=== PATIENT | male | born 1945 | race Caucasian/White ===

== ENCOUNTER → 2016-07-16 | Outpatient (CLI) | payer BC | END | disposition home or self-care (01) | LOC: XYW 07:34 | PROVIDERS: ATTEND Internal Medicine | DX: I51.7 Cardiomegaly (principal); I35.0 Nonrheumatic aortic (valve) stenosis; I35.1 Nonrheumatic aortic (valve) insufficiency; I37.1 Nonrheumatic pulmonary valve insufficiency | CPT/HCPCS: 93306 ==

== ENCOUNTER → 2016-08-14 10:55 | Emergency (ER) | payer BC, MEDICARE ==
[~2016-08-14] VITALS: Ht 165.1 cm; Wt 90.7 kg
[~2016-08-14 10:55] MED LIST: SODIUM BICARBONATE 8.4% INJ 50ML SYRINGE ONE
[2016-08-14 11:03] VITALS: BP 70/29
== END | disposition expired ==
LOC: EDUNIT# 10:48 → EDBD 10:55 → ER 10:55
DX: I46.9 Cardiac arrest, cause unspecified (principal); I10 Essential (primary) hypertension; Z87.891 Personal history of nicotine dependence; Z88.8 Allergy status to other drugs, medicaments and biological substances
CPT/HCPCS: 31500; 92950; 99291